=== PATIENT | female | born 1945 | race Caucasian/White ===

== ENCOUNTER → 2023-07-29 10:12 | Outpatient (REF) | payer MEDICARE, SELFPAY | LOC: WDC 10:12 | PROVIDERS: ATTENDING PHYSICIAN Family Medicine | DX: Z78.0 Asymptomatic menopausal state (principal); Z12.31 Encounter for screening mammogram for malignant neoplasm of breast | CPT/HCPCS: 77063; 77067; 77080 ==

== ENCOUNTER → 2024-09-26 13:15 | Outpatient (REF) | payer MEDICARE, SELFPAY | LOC: WDC 13:15 | PROVIDERS: ATTENDING PHYSICIAN Family Medicine | DX: Z12.31 Encounter for screening mammogram for malignant neoplasm of breast (principal) | CPT/HCPCS: 77063; 77067 ==